=== PATIENT | male | born 1990 | race Caucasian/White ===

== ENCOUNTER 2023-09-23 20:56 | Emergency (ER) | payer OTHER, SELFPAY ==
[2023-09-23 20:58] VITALS: BP 158/109
--- NOTE | 2023-09-23 22:02 | ED.GENMED ---
History of Present Illness
General
Chief Complaint: Abdominal Symptoms
Source: patient
Exam Limitations: none
Time Seen by Provider: 09/23/23 21:26
Travel History
Have you had any contact with someone who has COVID-19?: No
Do you have any symptoms of coronavirus? Fever > 100 degrees, chills, cough, shortness of breath, sore throat, loss of taste or smell, muscle aches, or headache?: No
History of Present Illness
History of Present Illness:
This is a 32 year old male that comes in with c/o nausea, vomiting. States that he started with some upper abd discomfort/pressure on Friday night into Friday. States that he was nauseated and vomited 3-4 times. States that the nausea continued on
Friday and his abd felt sore. States that it is just not going away. States that last night he had this pressure discomfort so today he went to see the PCP. Patient was told that this might just be a reaction to something he eat and is just
lingering. States that he also took a laxative today and around 7pm he did a fleets enema. States that he is still nauseated but has not vomited any further since Friday night. States that he also just started Semaglutide infection and he had his
third injection on Friday. Denies any fever, chills, chest pain, SOB, vomiting, diarrhea, headache, dizziness, urinary burning.
Past History
Past History
ED Past Medical History: Other (Celiac disease, Diverticulitis, )
ED Past Surgical History: Other (Hematoma removed from the left leg.)
Social History
Tobacco: Non-smoker
Alcohol: None
Personal:
Living: with family
Review of Systems
Review of Systems
All Other Systems: ROS reviewed and negative except as documented in HPI and ROS
Constitutional: Reports no symptoms; Denies fever or chills
EENT: Reports no symptoms
Respiratory: Reports no symptoms; Denies cough or trouble breathing
Cardiac: Reports no symptoms; Denies chest pain
ABD/GI: Reports abdominal pain (Upper abd pressure), nausea and vomiting (On Friday into Friday); Denies diarrhea
: Reports no symptoms; Denies dysuria, frequency or urgency
Musculoskeletal: Reports no symptoms
Skin: Reports no symptoms
Neurological: Reports no symptoms; Denies dizzy or headache
Psychiatric: Reports no symptoms
Phy Exam
General Physical Exam
General Presentation: no apparent distress
General age: appears stated age
General Skin: warm and dry
General Habitus: normal
General Mental: alert
General Hydration: appears well hydrated
ENT Exam
ENT Exam: TM's normal, pharynx normal and neck supple
Eye Exam
Eye Exam: EOMI
Cardiovascular Exam
Cardiovascular Exam: regular rate/rhythm, no edema, no murmur and normal peripheral pulses
Pulmonary Exam
Pulmonary Exam: lungs clear, no respiratory distress, no rales, chest non tender, no crackles, no rhonchi, no wheezing and no cough
Gastrointestinal Exam
Gastrointestinal Exam: normal bowel sounds, non tender, soft, no organomegaly, no pulsatile mass and non distended
Musculoskeletal Exam
Musculoskeletal Exam: full ROM and no edema
Skin Exam
Skin Exam: normal color, warm/dry, no rash and no petechia
Psychiatric Exam
Psychiatric Exam: normal mood/affect
Course
Orders/Labs/Results
Orders:
Orders
09/23/23 22:00
0.9% Sodium Chloride 1000 ml [Nss] 1,000 ml IV BOLUS
Ondansetron Injectable [Zofran] 4 mg IV NOW STA
Pantoprazole [Protonix IV] 40 mg IV NOW STA
US Abdomen Complete/Upper Urgent
Comment:
Reason For Exam: Upper abd discomfort
09/23/23 22:01
Sucralfate Suspension [Carafate Suspension] 1 gm PO NOW STA
09/23/23 22:15
Complete Blood Count/With Diff Urgent
Comprehensive Metabolic Panel Urgent
Lipase Urgent
Abnormal Lab Results
09/23/23
22:15
WBC 14.6 H 10^3/uL
(4.8-10.8)
Abs Immat Gran (auto) 0.1 H 10^3/uL
(0-0.05)
Absolute Neuts (auto) 10.4 H 10^3/uL
(1.4-6.5)
Absolute Monos (auto) 1.5 H 10^3/uL
(0.1-0.6)
Lymphocytes % 15.6 L %
(20.5-51.1)
Monocytes % 10.2 H %
(1.7-9.3)
Sodium 134 L mmol/L
(135-145)
Glucose 107 H mg/dl
(70-99)
ALT 53 H U/L
(0-50)
09/23/23 22:15
09/23/23 22:15
lEUKOCYTOSIS, Glucose nonfasting. ALT very slightly elevated. Lipase normal at 45
Vital Signs
Initial and Last Documented VS:
Initial Vital Signs
Temp Pulse Resp BP Pulse Ox
97.7 F 94 18 158/109 95
09/23/23 20:58 09/23/23 20:58 09/23/23 20:58 09/23/23 20:58 09/23/23 20:58
Last Documented Vital Signs
Temp Pulse Resp BP Pulse Ox
97.7 F 94 18 130/96 100
09/23/23 20:58 09/23/23 20:58 09/23/23 20:58 09/23/23 22:07 09/23/23 22:25
MDM/Problems Addressed
Differential Diagnosis Includes:
Gastritis, Viral GI syndrome, Ulcer
MDM/Problems Addressed:
This is a 32 year old male that comes in with c/o abd pressure. States that he started with nausea and vomiting on Friday night into Friday. The vomiting stopped but the nausea continued. Patient states that there is pressure in the upper abd when
he eats. Patient also just started on Semaglutide injections and he had his third injection on Friday.
Will check labs and get US.
Back into see patient. States that he is feeling some better. Reviewed labs and US. This is most likely a Gastritis or a developing ulcer. Will place patient on Protonix and Carafate as patient states that his pain gets worse after eating. Patient
to follow up with the family doctor of the GI specialist for further evaluation. Patient to return with fever, increased or changing pain, or any other concerns.
Chronic conditions affecting care:
Celiac disease
Acute Exacerbation and/or Progression of Chronic Illness:
Celiac disease
*Radiology
Radiology exam reviewed: radiology read reviewed (US-Severe diffuse hepatic steatosis. No sonographic evidence for cholelithiasis, acute cholecystitis, or biliary obstruction. Mild splenomegaly. )
*Pulse Oximetry
Patient hypoxic: no
*EKG
Interpreted by ED Provider?: NA
Rate: EKG- N/A
*Alley Tender Interpretation
Rate: Alley Tender- N/A
*Critical Care Note
Total Time (30-74mins, 75-104mins- exclusive of procedures): Not Applicable
ED Attending Note
-
Portions of this chart may have been created with voice recognition software.� Occasional wrong word or��sound alike� substitutions may have occurred due to the inherent limitations of voice recognition software.
Discharge Plan
Departure
Patient Disposition: Home (Routine Discharge)
Date of Disposition: 09/24/23
Time of Disposition: 00:16
Patient with high blood pressure during this ER visit?: Yes
Condition: Good
Covid-19: Not Applicable
Discharge Problem:
Gastritis
Instructions: Gastritis (DC), Ulcer and Gastritis Diet, BLOOD PRESSURE
Prescriptions:
New
pantoprazole [Protonix] 40 mg tablet,delayed release (DR/EC)
40 mg PO DAILY Qty: 30 0RF
sucralfate [Carafate] 1 gram tablet
1 g PO ACHS Qty: 40 0RF
Rx Instructions:
30min-1hour before meals and HS. Dissolve in 10ml of water and drink
No Action
acetaminophen 325 MG tablet
325 mg PO Q4HPRN PRN (Reason: pain)
amoxicillin-pot clavulanate 1 TABLET tablet
1 tab PO Q12
Patient Comments:
x 10 days
oxycodone-acetaminophen [Percocet] 1 EACH tablet
1 ea PO Q4HPRN PRN (Reason: pain)
Patient Comments:
acetaminophen-oxycodone 300mg-5mg
aspirin 81 MG tablet,chewable
81 mg PO DAILY
enoxaparin 40 MG/0.4 ML syringe
40 mg SQ DAILY
morphine 2 MG/ML syringe
1 mg IV Q4HPRN PRN (Reason: severe pain)
oxymetazoline [Anefrin] 0.05 % spray,non-aerosol
0 sprays intranasal BID
bacitracin-polymyxin B 1 APPLIC packet
1 applic topical QID
Referrals:
Chalo Yates MD [Family Provider] - Call in 1-3 days for appt
Activity Restrictions/Additional Instructions:
As discussed, your blood work shows that your WBC are slightly elevated. Your US shows that you have a fatty liver but there are no gallstones or gallbladder disease. This may be a Gastritis or a developing ulcer. You have had 2 prescriptions sent
to your Pharmacy. The first is for Protonix that you will take daily. The second is for Carafate that you will take 30 min to 1 hour before meals and at bedtime. Please dissolve the tablet in 10ml or 2 tsp of water and drink. Try and stay away from
any Caffeine. Follow up with the family doctor for recheck. IF YOU HAVE INCREASED OR CHANGING PAIN, FEVER, VOMITING OR YOU HAVE ANY OTHER CONCERNS PLEASE RETURN TO THE EMERGENCY ROOM.
Interventions
Interventions:
*Risk Screen - Suicide Last Done: 09/23/23 20:58
*General Assessment Last Done: 09/23/23 20:58
*Neglect/Abuse Screening Last Done: 09/23/23 20:58
ED- Fall Risk Assessment Last Done: 09/23/23 22:25
*ED COVID-19 Vaccine History Last Done: 09/23/23 22:25
KD-Igwqvr-Behsidvivt Assessment Last Done: 09/23/23 22:25
[2023-09-23 22:07] VITALS: BP 130/96
[2023-09-23] MEDS: NSS 1000 IV (22:17)
[2023-09-23] MEDS: ZOFRAN 4 MG IV (22:18)
[2023-09-23] MEDS: PROTONIX IV 40 MG IV (22:19)
[2023-09-23 22:25] VITALS: BMI 42.5
[2023-09-23 22:27] LABS: % Basophils 0.1 % (0-2); % Eosinophils 2.2 % (0-6); % Immature Granulocytes 0.5 % (0-0.5); % Lymphocytes 15.6 % (20.5-51.1); % Monocytes 10.2 % (1.7-9.3); % Neutrophils 71.4 % (42.2-75.2); Absolute Eosinophils 0.3 10^3/uL (0-0.7); Absolute Immature Granulocytes 0.1 10^3/uL (0-0.05); Absolute Lymphocytes 2.3 10^3/uL (1.2-3.4); Absolute Monocytes 1.5 10^3/uL (0.1-0.6); Absolute Neutrophils 10.4 10^3/uL (1.4-6.5); Hematocrit 45.7 % (39.0-52.0); Hemoglobin 15.3 g/dL (13.0-18.0); Mean Corp Hgb Conc. 33.5 g/dL (33.0-37.0); Mean Corpuscular Hgb 27.2 pg (27.0-31.0); Mean Corpuscular Volume 81.3 fL (80.0-94.0); Nucleated Red Blood Cells % 0 % (-); Platelet Count 281 10^3/uL (130-400); Red Blood Cell Count 5.62 10^6/uL (4.70-6.10); Red Cell Dist. Width 13.2 % (11.5-14.5); White Blood Cell Count 14.6 10^3/uL (4.8-10.8)
[2023-09-23 22:39] LABS: ALT (SGPT) 53 U/L (0-50); AST (SGOT) 28 U/L (17-59); Albumin 3.8 g/dl (3.5-5.0); Alkaline Phosphatase 96 U/L (38-126); Blood Urea Nitrogen 12 mg/dl (9-20); Calcium 8.6 mg/dl (8.4-10.2); Carbon Dioxide 27 mmol/L (22-30); Chloride 100 mmol/L (98-107); Estimated Creatinine Clearance > 125 ml/min; Glucose 107 mg/dl (70-99); Lipase 45 U/L (23-300); Potassium 3.9 mmol/L (3.5-5.1); Sodium 134 mmol/L (135-145); Total Bilirubin 0.9 mg/dl (0.2-1.3); Total Protein 6.9 g/dl (6.3-8.2); eGFR > 60.00
[2023-09-23] MEDS: CARAFATE SUSPENSION 1 GM PO (23:50)
== END 2023-09-24 01:05 | disposition home or self-care (01) ==
LOC: EMR 20:56
PROVIDERS: Clinical Nurse Specialist Family Health; EMERGENCY PHYSICIAN Student in an Organized Health Care Education/Training Program; FAMILY PHYSICIAN Family Medicine
DX: K29.70 Gastritis, unspecified, without bleeding (principal); K90.0 Celiac disease
CPT/HCPCS: 99284; 96374; 96375; 96361; 76700; 80053; 83690; 85025